=== PATIENT | male | born 1940 | race Caucasian/White ===

== ENCOUNTER 2016-06-26 11:59 | Emergency (ER) | payer OTHER, BC ==
[2016-06-26 12:20] VITALS: RESP 16
[2016-06-26] MEDS ORDERED: BENZONATATE 100 MG CAP PO ONE (12:49)
--- NOTE | 2016-06-26 13:01 | UCPHY ---
H & P Time Seen by Provider: 06/26/16 12:40 Patient Type: Established HPI/ROS: HPI Cough congestion cold symptoms. 76-year-old male by private vehicle. He complains of a nonproductive cough, nasal congestion, clear rhinorrhea, ongoing for 10 days now. He is here with his who has similar symptoms. ROS: Constitutional: No fever, no chills. No weakness. Eyes: No discharge. No changes in vision. ENT: No sore throat. As above. Respiratory: As above No shortness of breath. Cardiac: No chest pain, no palpitations. Gastrointestinal: No abdominal pain, no vomiting, no diarrhea. Genitourinary: No hematuria. No dysuria or increased frequency with urination. Musculoskeletal: No back pain. No neck pain. No myalgias or arthralgias. Skin: No rashes. Neurological: No headache. No focal weakness or altered sensation. Past medical history: Prostate surgery, orthopedic surgeries. Social history: Nonsmoker. Here with his . Physical Exam: General Appearance: Alert, no distress. This patient is responding to questions appropriately and in full sentences. This patient appears well- hydrated and well-nourished. Eyes: Pupils equal and round no pallor or injection. No lid edema, erythema or injection. ENT, Mouth: Mucous membranes are moist. The pharyngeal tissues are unremarkable. No edema or swelling. No asymmetry suggestive of abscess. No erythema or exudates. Respiratory: There are no retractions, lungs are clear to auscultation with good air movement bilaterally. Cardiovascular: Regular rate and rhythm. No murmur. Neurological: Motor sensory function is grossly intact. Cranial nerves are normal. Gait is normal. Skin: Warm and dry, no rashes. Musculoskeletal: Neck is supple and nontender. Extremities are symmetrical. All joints range without pain or impingement. Psychiatric: No agitation. No depression. Database: EKG: Imaging: Procedures: Emergency department course: Vital signs reviewed and are normal. This patient is well-appearing. Unremarkable physical exam. Likely viral upper respiratory infection and bronchitis. Plan will be to prescribe him Tessalon parole. Have recommended NyQuil [id number] to take in the evening before sleep for cough suppression and anti congestion. He feels comfortable going home. Follow-up and return to emergency department precautions reviewed with him. All of his questions were answered. He was discharged in good condition. Differential Diagnosis: The differential diagnosis on this patient includes but is not limited to bronchitis, upper respiratory infection. Pneumonia, serious bacterial infection unlikely. This represents a partial list of diagnoses considered. These considerations are based on history, physical exam, past history, reassessment and diagnostic testing. Smoking Status: Never smoked Constitutional: Initial Vital Signs Temperature (C) 36.8 C 06/26/16 12:16 Heart Rate 57 L 06/26/16 12:16 Respiratory Rate 16 06/26/16 12:16 Blood Pressure 153/74 H 06/26/16 12:16 O2 Sat (%) 94 06/26/16 12:16 O2 Delivery Mode Room Air Allergies/Adverse Reactions: No Known Allergies Allergy (Verified 06/26/16 12:20) Home Medications: Medication Instructions Recorded Benzonatate [Tessalon Pearles] 100 mg PO TID #12 cap 06/26/16 Departure - Departure Disposition: Home, Routine, Self-Care Clinical Impression: Bronchitis, Upper respiratory infection Condition: Good Instructions: Acute Bronchitis (ED) Additional Instructions: Read and follow provided instructions. Follow-up with your primary care physician in 1-2 days for re-evaluation. Take medication as prescribed for cough. You can take NyQuil in the evening for cough suppression and anti congestion before bed. Take as directed. Return to the emergency department for worsening cough, fever, difficulty breathing or other serious concerns. Referrals: Efren Tucker MD [Primary Care Provider] - As per Instructions Prescriptions: Benzonatate [Tessalon Pearles] 100 mg PO TID #12 cap - PQRS PQRS Measurement: 134: Depression screening and followup, PRIME MD-PHQ2 (12 years and older) Over the last 2 weeks, how often have you been bothered by any of the following problems? 1. Feeling down, depressed, or hopeless? 2. Little interest or pleasure in doing things? Answered no to both questions. 130: Documentation of medications. Reviewed all patient medications, doses, route and frequency. 226: Do you smoke? No. 47: 65 and older: Advanced care planning. Patient designates surrogate decision maker as spouse. 51: 18 years old and older with diagnosis of COPD, spirometry performance. NA 52: 18 years old and older with COPD and symptoms of COPD or FEV1<60% predicted prescribed a B Agonist. NA
[2016-06-26 13:30] VITALS: BP 143/72; PULSE 36; TEMP 97.9; O2SAT 96
== END 2016-06-26 13:20 | disposition home or self-care (01) ==
LOC: CED 11:59
DX: J40 Bronchitis, not specified as acute or chronic (principal)
CPT/HCPCS: 99214-PO; G0463-PO

== ENCOUNTER → 2017-03-04 | Outpatient (CLI) | payer OTHER | LOC: BRMIMAGING 09:56 | PROVIDERS: ATTEND Internal Medicine | DX: M85.80 Other specified disorders of bone density and structure, unspecified site (principal); Z92.241 Personal history of systemic steroid therapy ==

== ENCOUNTER → 2017-10-21 | Outpatient (CLI) | payer OTHER | LOC: FIMAGING 18:35 | PROVIDERS: ATTEND Orthopaedic Surgery | DX: M75.102 Unspecified rotator cuff tear or rupture of left shoulder, not specified as traumatic (principal); M75.22 Bicipital tendinitis, left shoulder; M24.112 Other articular cartilage disorders, left shoulder ==

== ENCOUNTER 2017-12-03 05:36 | Day surgery (SDC) | payer OTHER ==
--- NOTE | 2017-12-02 17:19 | PDGENHP ---
History & Physical Chief Complaint: Left shoulder rotator cuff tear History of Present Illness: Td is a pleasant 77 year old male who presented to our office with left shoulder pain. He had MRI which showed high grade partail RCT with impingement and biceps tendinitis. He underwent conservative treatment and was to the point he was requiring surgical intervention. Pertinent Past, Social, Family History: Social history: non-smoker. PMH: arthritis, cancer. Surgical history: multiple orthopedic surgeries. Family History: non-contributory Relevant Physical Exam: Physical exam of the left shoulder demonstrates 155 deg of FF, ER to 50 deg, and IR to L2 which are all somewhat limited compared to the opposite side. He has 5/5 strength to biceps, triceps, ER, and IR, but he has weakness to both SS and Speeds testing. FAIR exam positive for anterior shoulder pain. Cross chest test negative. He is tender overlying the bicipital groove and less so at the anterior joint line. He is non-tender overlying the greater tuberosity, posterior posterior joint line, coracoid, anterior acromion , and AC joint. Distal neurovascularity intact upon a limited exam. Cardiorespiratory Assessment: RRR, CTAB
[2017-12-03] MEDS ORDERED: LR 1,000 ML IV ONE (05:54)
[2017-12-03] MEDS ORDERED: ACETAMINOPHEN 500 MG TAB PO ONE (06:00)
[2017-12-03] MEDS ORDERED: ceFAZolin 2 GM/DEXTROSE 100 ML IV ONE (06:00)
[2017-12-03] MEDS ORDERED: BUPIVACAINE/EPI 0.5% 30 ML SDV ONE (06:47)
[2017-12-03] MEDS ORDERED: EPINEPHrine 1 MG/ML INJ ONE (06:47)
[2017-12-03] MEDS ORDERED: BUPIVACAINE 0.25% 30 ML SDV ONE (07:00)
[2017-12-03] MEDS ORDERED: DEXAMETHASONE 4 MG/ML VIAL ONE ×2 (07:06)
[2017-12-03] MEDS ORDERED: LIDOCAINE 2% 2 ML INJ ONE (07:08)
[2017-12-03] MEDS ORDERED: PROPOFOL 200 MG/20 ML VIAL ONE (07:09)
[2017-12-03] MEDS ORDERED: fentaNYL 100 MCG/2 ML INJ ONE (07:09)
[2017-12-03] MEDS ORDERED: MIDAZOLAM 2 MG/2 ML VIAL ONE (07:22)
--- NOTE | 2017-12-03 07:24 | PDHPUP ---
History & Physical Update H&P update statement: This history and physical update is based on an assessment of the patient which was completed after admission or registration (within 24 hours), but prior to the surgery/procedure. H&P update: H&P reviewed & patient examined, no change in patient's condition since H&P completed
--- NOTE | 2017-12-03 07:25 | PDANEPAE ---
ANE Past Medical History - Cardiovascular History Hx Hypertension: No Hx Arrhythmias: No Hx Chest Pain: No Hx Coronary Artery / Peripheral Vascular Disease: No Hx CHF / Valvular Disease: No Hx Palpitations: No - Pulmonary History Hx COPD: No Hx Asthma/Reactive Airway Disease: No Hx Recent Upper Respiratory Infection: No Hx Oxygen in Use at Home: No Hx Sleep Apnea: No Sleep Apnea Screening Result - Last Documented: Negative - Neurologic History Hx Cerebrovascular Accident: No Hx Seizures: No Hx Dementia: No - Endocrine History Hx Diabetes: No - Renal History Hx Renal Disorders: No - Liver History Hx Hepatic Disorders: No - Neurological & Psychiatric Hx Hx Neurological and Psychiatric Disorders: No - Cancer History Hx Cancer: Yes Cancer History Comment: PROSTATE. SKIN - Congenital Disorder History Hx Congenital Disorders: No - GI History Hx Gastrointestinal Disorders: No - Other Health History Other Health History: ARNULFO HEARING LOSS WITH INTERMITTENT TINNITUS. ARTHRITIS. 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 EXC RT HYDROCELE 02/2013. PROSTATECTOMY. ARNULFO ING HERNIA. TONSILLECTOMY ANE Review of Systems Review of Systems: - Exercise capacity METS (RN): 5 METS ANE Patient History - Allergies Allergies/Adverse Reactions: No Known Allergies Allergy (Verified 11/15/17 12:00) - Home Medications Home medications: home medication list seen and reviewed Home Medications: Calcium 500 + Vit D Caplet 11/15/17 [Last Taken 11/28/17] Glucosamine 11/15/17 [Last Taken 11/28/17] Prednisone 11/15/17 [Last Taken 11/28/17] - NPO status NPO Status: no food or drink >8 hours NPO Since - Liquids (Date): 12/02/17 NPO Since - Liquids (Time): 23:55 NPO Since - Solids (Date): 12/02/17 NPO Since - Solids (Time): 23:55 - Anes Hx Anes Hx: no prior problems - Smoking Hx Smoking Status: Never smoked - Family Anes Hx Family Hx Anesthesia Complications: none ANE Labs/Vital Signs - Vital Signs Blood Pressure: 116/73 Heart Rate: 58 Respiratory Rate: 16 O2 Sat (%): 94 Height: 177.8 cm Weight: 79.379 kg ANE Physical Exam - Airway Neck exam: decreased ROM Mallampati Score: Class 1 Mouth exam: normal dental/mouth exam - Pulmonary Pulmonary: no respiratory distress, no rales or rhonchi, clear to auscultation - Cardiovascular Cardiovascular: regular rate and rhythym, no murmur, rub, or gallop - ASA Status ASA Status: II ANE Anesthesia Plan Anesthesia Plan: GA w LMA Regional Anesthesia: interscalene BP NB
[2017-12-03] MEDS ORDERED: THROMBIN (BOVINE) 5,000 UNIT VIAL TP ONE (07:30)
[2017-12-03] MEDS ORDERED: CALCIUM CHLORIDE 1 GM/10 ML INJ ONE (07:30)
[2017-12-03] MEDS ORDERED: NALOXONE HCL 0.4 MG/ML INJ IVP PRN (08:47)
[2017-12-03] MEDS ORDERED: ONDANSETRON 4 MG/2 ML VIAL ONE (08:49)
[2017-12-03] MEDS ORDERED: PROMETHAZINE HCL 25 MG/ML INJ IVP PRN (09:17)
[2017-12-03] MEDS ORDERED: fentaNYL 100 MCG/2 ML INJ IVP PRN (09:17)
[2017-12-03] MEDS ORDERED: oxyCODONE IR 5 MG TAB PO PRN (09:17)
[2017-12-03] MEDS ORDERED: ONDANSETRON 4 MG/2 ML VIAL IVP PRN (09:17)
[2017-12-03] MEDS ORDERED: LR 500 ML IV PRN (09:17)
[2017-12-03] MEDS ORDERED: ACETAMINOPHEN 500 MG TAB PO PRN (09:17)
[2017-12-03] MEDS ORDERED: KETOROLAC 15 MG/1 ML SDV IVP ONE (09:30)
[2017-12-03] MEDS ORDERED: HYDROCODONE/APAP 5/325 TAB PO PRN (09:30)
[2017-12-03] MEDS ORDERED: ACETAMINOPHEN 325 MG TAB PO PRN (09:30)
--- NOTE | 2017-12-03 09:30 | POSTOPPROG ---
Post Op Note Date of Operation: 12/03/17 Surgeon: Renee Louis Inside Phone Sales: [employer] Anesthesia: LMA, Other (Specify) Pre-op Diagnosis: l bicep tendinopathy with impingement and labral tear with oa Procedure: open l bicep tenodesis w/ shoulder scope w/ sad/dce and debride bicep /rc/la Inf/Abcess present in the surg proc area at time of surgery?: No Depth: Deep Incisional (Fascial) EBL: 50-100
--- NOTE | 2017-12-03 09:55 | POSTANESTH ---
Post Anesthetic Evaluation Cardiovascular Status: Normal, Stable, Similar to Pre-Op Cond Respiratory Status: Normal, Stable, Similar to Pre-op Cond. Level of Consciousness/Mental Status: Can Participate in Eval, Mildly Sleepy, Arousable Pain Control: Adequate, Prn Tx Ordered Nausea/Vomiting Control: Adequate, Prn Tx Ordered Complications Possibly Related to Anesthesia: None Noted
[2017-12-03] MEDS ORDERED: KETOROLAC 15 MG/1 ML SDV ONE (10:06)
--- NOTE | 2017-12-03 10:20 | GOP ---
[f rep st] OPERATIVE REPORT DATE OF OPERATION: 12/03/2017 SURGEON: Renee Louis MD STAFF DEVELOPMENT MANAGER: Bhupendra Guerra, [employer], LSA, whose presence was medically necessary. ANESTHESIA: LMA plus scalene nerve block per surgeon's request. PREOPERATIVE DIAGNOSIS: Left shoulder impingement syndrome with labral tear, biceps tendinopathy and partial thickness rotator cuff tear. POSTOPERATIVE DIAGNOSIS: Left shoulder impingement syndrome with labral tear, biceps tendinopathy an d partial thickness rotator cuff tear with grade 3 chondral change in the humerus and grade 3 and gra de 4 chondral changes to the glenoid. PROCEDURE PERFORMED: Open left biceps tenodesis with left shoulder arthroscopy with subacromial deco mpression, distal clavicle excision, debridement of rotator cuff bursa, biceps stump and labrum, and chondroplasty of the glenohumeral joint. FINDINGS: INDICATIONS: This is a 77-year-old male with a several-month history of left shoulder pain worsening with use with time. MRI exam revealed a significant anterior acromial curve, partial-thickness rota tor cuff tear, biceps tendinopathy and extensive tearing of the labrum. He wishes to have surgery in order to resolve the problem. DESCRIPTION OF PROCEDURE: The patient was brought to the operating room after the left side had been identified as correct side by the patient, nurse, physician. Once in the operating room, he was giv en a scalene block on the left side and then placed under general anesthesia using LMA. Once asleep, he was placed in a beach chair position with the left upper extremity sterilely prepped and draped i n usual fashion using GSI solution. Once prepped and draped, incision was made on the posterolateral corner of the acromion with the camera introduced without difficulty. Inspection of joint revealed extensive tearing of the entirety of the glenoid labrum as well as grade 3 and an area of grade 4 cho ndral change at the anteroinferior portion of the glenoid. There were grade 3 chondral changes noted of the humeral head. He was noted to have significant amount of fraying to the rotator cuff as well as fraying of the biceps as it exited the shoulder. Therefore, the camera was removed from the [facility] lder. A 4 cm incision was made on the anterior portion of the shoulder with sharp dissection and car ried down through the skin and subcutaneous layers with bleeding controlled using electrocautery. Th e deltopectoral interval was found with cephalic vein, carried with the pectoralis. Blunt dissection was carried down onto the biceps sheath. Sheath was opened. #2 FiberWire was woven into the biceps , and it was cut at its stump. The bicipital groove was debrided. A guidewire was placed within the bicipital groove. The tendon was measured to be 7 mm in diameter. Therefore, an 8 mm hole was made . The tendon was placed into the humeral hole, and a 9 mm [employer] anchor was put into place, noted t o fit securely. The wound was then thoroughly irrigated with an antibiotic solution, was closed in l box to include 2-0 Vicryl suture for the deltopectoral interval and subcutaneous layers, 3-0 V-Loc suture in a running subcuticular stitch for the skin. Attention was turned back to the shoulder. Camera was reintroduced back in the shoulder. Using in-t o-out technique, an anterior portal was made superolateral to the coracoid process with 6 x 75 mm thr eaded cannula placed through the anterior portal. A 3.5 mm smooth shaver was used to debride and jose ulk the extensive tearing of the labrum as well as chondroplasty of the glenohumeral joint. Multiple loose bodies were taken out of the anterior pouch using a combination of biter and grasper, was used to remove the biceps stump from within the shoulder, and the frayed portion of the rotator cuff was also debrided. Once completed, all instruments were removed from the glenohumeral joint. Using the same portal sites reintroduced in the subacromial space, a third incision was made 2 cm lateral to th e acromial process in line with the posterior cortex of the clavicle with the camera switched to the lateral portal. Alternating with using arthroscopic Bovie tip and a shaver was used to remove the bu rsal tissue and the soft tissue on the undersurface of the acromion. It was noted to have a sharp an terior acromial curve, and a combination of shaver and bur was brought through the posterior portal a nd used to remove that curve taking approximately 8 mm of bone. Attention was then turned to the dis zahida clavicle which was noted to have a short and sharp inferior spur, and this was also removed using a combination of shaver and bur removing approximately 5 mm of bone. Once finished, an extensive se arch around the rotator cuff revealed partial-thickness tearing, but no full-thickness tear noted off the greater tuberosity or the anterior portion of the shoulder. Therefore, all instruments were rem jhon from the subacromial space, 30 cc of Marcaine infused in the subacromial space, and the 3 portal sites were closed using 3-0 nylon suture in a gulyhk-oc-hzleo type stitch. Plasma gel was injected in the subacromial space. The bicipital wound was dressed with Steri-Strips. All wounds were then d ressed with Xeroform, 4 x 4's, and Tegaderm. The patient was completely undraped in the operating ro om. A sling was placed on the left upper extremity. He was then woken up, extubated, transferred on to a stretcher, and sent to recovery room in good condition. /[id number]/MODL
[2017-12-03 11:55] VITALS: BP 127/82
== END 2017-12-03 11:52 | disposition home or self-care (01) ==
LOC: FSGY 05:36
PROVIDERS: ATTEND Orthopaedic Surgery
PROC: 0PBB4ZZ Excision of Left Clavicle, Percutaneous Endoscopic Approach (ICD-10-PCS; principal; 2017-12-03 07:15)
PROC: 0RNH4ZZ Release Left Acromioclavicular Joint, Percutaneous Endoscopic Approach (ICD-10-PCS; principal; 2017-12-03 07:15)
PROC: 0MB24ZZ Excision of Left Shoulder Bursa and Ligament, Percutaneous Endoscopic Approach (ICD-10-PCS; principal; 2017-12-03 07:15)
DX: M25.812 Other specified joint disorders, left shoulder (principal); S43.432A Superior glenoid labrum lesion of left shoulder, initial encounter; M75.92 Shoulder lesion, unspecified, left shoulder
CPT/HCPCS: C1713; J0171; J0690; J1100; J1885; J2250; J2405; J2704; J3010

== ENCOUNTER 2018-09-09 11:24 | Day surgery (SDC) | payer OTHER | END 2018-09-09 19:15 | disposition home or self-care (01) | LOC: FSGY 11:24 ==